=== PATIENT | male | born 1985 | race Caucasian/White ===

== ENCOUNTER 2016-03-23 19:26 | Outpatient (CLI) | payer MEDICAID | END 2016-03-23 19:27 | disposition home or self-care (01) | DX: G47.33 Obstructive sleep apnea (adult) (pediatric) (principal); Z68.30 Body mass index [BMI] 30.0-30.9, adult ==

== ENCOUNTER 2016-03-24 09:23 | Outpatient (CLI) | payer MEDICAID | END 2016-03-24 09:24 | disposition home or self-care (01) | DX: G47.33 Obstructive sleep apnea (adult) (pediatric) (principal) ==

== ENCOUNTER 2016-09-28 17:15 | Emergency (ER) | payer OTHER, MEDICAID ==
[2016-09-28 17:25] VITALS: BP 151/87
--- NOTE | 2016-09-28 17:50 | XRAY Preliminary Report ---
Exam: XR Hand 3 View LT IMPRESSION: Fourth digit tuft fracture. [facility] SITE ID: [id number]
--- NOTE | 2016-09-28 17:53 | XRAY Report ---
EXAM: LEFT HAND RADIOGRAPHY EXAM DATE: 09/28/2016 05:36 PM. CLINICAL HISTORY: Multiple hammer blows to left hand. COMPARISON: None. TECHNIQUE: 3 views. FINDINGS: Bones: Slightly displaced fourth digit tuft fracture. No other fractures or bone lesion seen. Joints: Normal. No subluxations. Soft Tissues: Normal. No soft tissue swelling. IMPRESSION: Fourth digit tuft fracture. [facility] Referring Provider Line: [phone] SITE ID: [id number]
[2016-09-28] MEDS ORDERED: ACETAMINOPHEN 325 MG TABLET PO STA (18:24)
[2016-09-28] MEDS ORDERED: IBUPROFEN 400 MG TABLET PO STA (18:24)
--- NOTE | 2016-09-28 18:28 | ED Physician Documentation ---
History of Present Illness - Stated complaint Stated Complaint: LT HAND SWELL - Chief complaint Chief Complaint: Ext Problem - Additonal information Additional information: hx from pt 30 male was holding a metal stake with his left hand and swinging a hammer to pound in the stake with his right and the hammer slipped off the stake and his on edge left hand got crushed between hammer and a board pain and swelling to dorsum of 2nd and 3rd MC Review of Systems Musculoskeletal: reports: Extremity pain PD PAST MEDICAL HISTORY - Past Medical History Cardiovascular: None Respiratory: Other Neuro: None Endocrine/Autoimmune: None GI: GERD : None HEENT: None Psych: None Musculoskeletal: None Derm: None - Past Surgical History Past Surgical History: Yes General: Cholecystectomy, EGD Ortho: Other HEENT: Tonsil/Adenoidectomy - Present Medications Home Medications: Ambulatory Orders Medication Instructions Recorded Confirmed No Known Home Medications [No 09/28/16 09/28/16 Known Home Medications] - Allergies Allergies/Adverse Reactions: Allergies Allergy/AdvReac Type Severity Reaction Status Date / Time No Known Drug Allergies Allergy Verified 09/28/16 18:14 - Social History Does the pt smoke?: Yes Smoking Status: Current every day smoker Does the pt drink ETOH?: Yes Does the pt have substance abuse?: No - Immunizations Immunizations are current?: Yes - POLST Patient has POLST: No PD ED PE NORMAL - Vitals Vital signs reviewed: Yes - Extremities Extremities: Other (swelling early brusing and TTP to dorsal aspect over 2nd and 3rd MC, nl cascade, MSV intact, no pain to distal 4th finger) Results - Vitals Vitals: Vital Signs - 24 hr 09/28/16 17:23 Temperature 37.0 C Heart Rate 78 Respiratory 18 Rate Blood Pressure 151/87 H O2 Saturation 98 Oxygen O2 Source Room air - Rads (name of study) hand Radiology: See rad report (distal 4th tuft fx (per pt form another injury months ago and not tender now)) Departure - Departure Disposition: 01 Home, Self Care Clinical Impression: Hand contusion Qualifiers: Encounter type: initial encounter Laterality: left Qualified Code(s): S60.222A - Contusion of left hand, initial encounter Condition: Good Instructions: ED Contusion Hand Follow-Up: Jazmín Osborn PA-C [Primary Care Provider] - Comments: The xrays show the old 4th finger fracture which has not fully healed - but no new fractures Wear the splint for support and to ease the pain. Ice elevation motrin and tylenol will help too. If not better in 2 weeks, please see your MD for a recheck and consideration of further imaging And please follow up with your PMD to get your blood pressure rechecked - it was high today {"Attachments":[{"__type":"ItemIdAttachment:#Exchange","ItemId":{"ChangeKey": [id number]","Id": [id number]/ qTMogAAAA=="},"Name":"Canceled Event: Practice, September 28, 6:00 PM","IsInline": false,"Size":[id number]}]} Forms: Activity restrictions
[2016-09-28] MEDS ORDERED: ACETAMINOPHEN 325 MG TABLET PO ONE (18:30)
[2016-09-28] MEDS ORDERED: IBUPROFEN 400 MG TABLET PO ONE (18:30)
== END 2016-09-28 18:43 | disposition home or self-care (01) ==
LOC: ED 17:15
DX: S60.222A Contusion of left hand, initial encounter (principal); W22.8XXA Striking against or struck by other objects, initial encounter; W23.0XXA Caught, crushed, jammed, or pinched between moving objects, initial encounter; Y93.89 Activity, other specified; F17.200 Nicotine dependence, unspecified, uncomplicated
CPT/HCPCS: 73130; 99282; 99283; A9270

== ENCOUNTER 2017-06-05 10:34 | Emergency (ER) | payer MEDICAID, OTHER ==
--- NOTE | 2017-06-05 11:03 | ED Physician Documentation ---
PD HPI BACK PAIN - Stated complaint Stated Complaint: BACK PX - Chief complaint Chief Complaint: Back Pain - History obtained from History obtained from: Patient, Friend - History of Present Illness Timing - onset: How many days ago (2) Timing - duration: Days (2) Timing - details: Gradual onset Pain level max: 9 Pain level now: 9 Location: Upper, Right, Left Quality: Pain, Spasm, Aching, Dull, Similar to prior episodes. No: Tearing Associated symptoms: No: Fever, Weakness, Numbness, Incontinent of urine, Unable to urinate, Hematuria, Incontinent of stool Improves with: Rest Worsened by: Movement, Twisting, Palpation Contributing factors: No: Lifting, Twisting, Trauma, Anticoagulated, Cancer, IVDA, Out of meds Recently seen: Not recently seen - Additional information Additional information: states took a neighbors vicodin without relief. Review of Systems Ten Systems: 10 systems reviewed and negative Constitutional: denies: Fever, Chills Ears: denies: Ear pain Nose: denies: Rhinorrhea / runny nose, Congestion Throat: denies: Sore throat Cardiac: denies: Chest pain / pressure, Palpitations Respiratory: reports: Cough (occassional, dry) GI: denies: Abdominal Pain, Nausea, Vomiting, Diarrhea : denies: Dysuria Skin: denies: Rash Musculoskeletal: denies: Neck pain Neurologic: denies: Focal weakness, Numbness, Headache PD PAST MEDICAL HISTORY - Past Medical History Cardiovascular: None Respiratory: Other Neuro: None Endocrine/Autoimmune: None GI: GERD : None HEENT: None Psych: None Musculoskeletal: None Derm: None - Past Surgical History Past Surgical History: Yes General: Cholecystectomy, EGD Ortho: Other HEENT: Tonsil/Adenoidectomy - Present Medications Home Medications: Ambulatory Orders Medication Instructions Recorded Confirmed Cyclobenzaprine [Flexeril] 10 mg PO TID PRN #20 tablet 06/05/17 Meloxicam [Mobic] 15 mg PO DAILY PRN #20 tablet 06/05/17 Oxycodone HCl/Acetaminophen 1 - 2 each PO Q6H PRN #14 tablet 06/05/17 [Percocet 5-325 mg Tablet] - Allergies Allergies/Adverse Reactions: Allergies Allergy/AdvReac Type Severity Reaction Status Date / Time No Known Drug Allergies Allergy Verified 06/05/17 10:53 - Social History Does the pt smoke?: Yes Smoking Status: Current every day smoker Does the pt drink ETOH?: Yes Does the pt have substance abuse?: No - Immunizations Immunizations are current?: Yes - POLST Patient has POLST: No PD ED PE NORMAL - Vitals Vital signs reviewed: Yes - General General: Alert and oriented X 3, No acute distress - HEENT HEENT: Moist mucous membranes - Neck Neck: Supple, no meningeal sign, No bony TTP - Cardiac Cardiac: RRR - Respiratory Respiratory: No respiratory distress, Clear bilaterally - Abdomen Abdomen: Soft, Non tender, Non distended - Back Back: No CVA TTP, No spinal TTP, Other (paraspinal spasm, B upper thoracic area T4-10 approx. No midline tenderness to palpation or percussion.) - Derm Derm: Warm and dry - Extremities Extremities: Normal ROM s pain, No edema, No calf tenderness / cord - Neuro Neuro: Alert and oriented X 3, No motor deficit, No sensory deficit - Psych Psych: Normal mood, Normal affect Results - Vitals Vitals: Vital Signs - 24 hr 06/05/17 06/05/17 06/05/17 10:43 12:49 13:07 Temperature 37.0 C Heart Rate 82 61 58 L Respiratory 17 20 18 Rate Blood Pressure 156/84 H 129/79 100/88 H O2 Saturation 98 99 96 06/05/17 13:37 Temperature 36.9 C Heart Rate 62 Respiratory 20 Rate Blood Pressure 128/91 H O2 Saturation 99 Oxygen O2 Source Room air - Labs Labs: Laboratory Tests 06/05/17 06/05/17 12:44 12:44 WBC 5.8 RBC 5.03 Hgb 15.5 Hct 44.5 MCV 88.4 MCH 30.8 MCHC 34.8 RDW 13.8 Plt Count 181 MPV 7.8 Neut # 3.3 Lymph # 1.4 L Mower # 0.8 Eos # 0.2 Baso # 0.1 Absolute Nucleated RBC 0.01 Nucleated RBC % 0.1 Sodium 140 Potassium 4.0 Chloride 107 Carbon Dioxide 26 Anion Gap 7.0 BUN 12 Creatinine 1.0 Estimated GFR (MDRD) 87 L Glucose 95 Calcium 8.8 Total Bilirubin 0.6 AST 24 ALT 18 Alkaline Phosphatase 38 L Total Protein 7.3 Albumin 4.6 Globulin 2.7 Albumin/Globulin Ratio 1.7 Lipase 13 L PD MEDICAL DECISION MAKING - ED course Complexity details: reviewed results, re-evaluated patient, considered differential (no cauda equina, no spinal epidural abscess, no fracture, no aortic dissection or evidence of aneursym rupture), d/w patient ED course: Patient is a 31-year-old male who presents to the emergency department with thoracic back pain. Works for a [employer]. Appears to be worse with movement and palpation. Appears musculoskeletal on exam. No evidence of aortic aneurysm or dissection. No chest pain. No acute laboratory findings. Pulses are equal bilaterally. Pain well controlled in the emergency department. Will trial on pain medication for home and see how he progresses over the next 1-2 days. He will return if he worsens. Patient counseled regarding signs and symptoms for which I believe and urgent re-evaluation would be necessary. Patient with good understanding of and agreement to plan and is comfortable going home at this time This document was made in part using voice recognition software. While efforts are made to proofread this document, sound alike and grammatical errors may occur. Departure - Departure Disposition: 01 Home, Self Care Clinical Impression: Back spasm Condition: Good Instructions: ED Spasm Back No Trauma Follow-Up: your,doctor in 1week [Other] Prescriptions: Cyclobenzaprine [Flexeril] 10 mg PO TID PRN #20 tablet PRN Reason: Spasms Meloxicam [Mobic] 15 mg PO DAILY PRN #20 tablet PRN Reason: pain Oxycodone HCl/Acetaminophen [Percocet 5-325 mg Tablet] 1 - 2 each PO Q6H PRN # 14 tablet PRN Reason: pain Comments: This should improve over the next 24-48 hours. Return if you worsen. Especially return if you develop fevers, numbness, tingling or uncontrolled pain. Do not drink alcohol or drive while on narcotic pain medicine. Note that many narcotic pain relievers also contain tylenol/acetaminophen. Please ensure that your total dose of acetaminophen from all sources does not exceed 3 grams (3000mg) per day. You may constipated on this medication, take a stool softener such as "Colace" twice a day while you are on it. Also recommend a bjqf-mto-wiprumb laxative such as senna or MiraLAX any day that you do not have a bowel movement. If you received narcotic pain medication in the emergency department, do not drive or operate machinery for the next 24 hours. Forms: Activity restrictions Discharge Date/Time: 06/05/17 13:38
[2017-06-05] MEDS ORDERED: KETOROLAC 60 MG/2 ML VIAL IM STA (11:04)
[2017-06-05] MEDS ORDERED: CYCLOBENZAPRINE 10 MG TABLET PO STA (11:05)
[2017-06-05] MEDS ORDERED: ONDANSETRON ODT 4 MG TABLET TL STA (11:35)
[2017-06-05] MEDS ORDERED: MORPHINE 2 MG/ML SYRINGE IVP STA (11:55)
[2017-06-05 13:02] LABS: ALBUMIN 4.6 g/dL (3.2-5.5); ALBUMIN/GLOBULIN RATIO 1.7 (1.0-2.2); BILIRUBIN,TOTAL 0.6 mg/dL (0.2-1.0); CALCIUM 8.8 mg/dL (8.5-10.3); TOTAL PROTEIN 7.3 g/dL (6.7-8.2)
[2017-06-05 13:07] LABS: BASOPHILS # (AUTO) 0.1 10^3/uL (0.0-0.1); BASOPHILS % (AUTO) 0.9 %; EOSINOPHILS # (AUTO) 0.2 10^3/uL (0.0-0.7); EOSINOPHILS % (AUTO) 3.3 %; HGB - HEMOGLOBIN 15.5 g/dL (14.0-18.0); LYMPHOCYTES # (AUTO) 1.4 10^3/uL (1.5-3.5); LYMPHOCYTES % (AUTO) 25.2 %; MEAN CORPUSCULAR HEMOGLOBIN 30.8 pg (27.0-31.0); MEAN CORPUSCULAR HGB CONC 34.8 g/dL (32.0-36.0); MEAN CORPUSCULAR VOLUME 88.4 fL (80.0-94.0); MEAN PLATELET VOLUME 7.8 fL (7.4-11.4); MONOCYTES # (AUTO) 0.8 10^3/uL (0.0-1.0); MONOCYTES % (AUTO) 13.6 %; NEUTROPHILS # (AUTO) 3.3 10^3/uL (1.5-6.6); PLT - PLATELET COUNT 181 10^3/uL (130-450); RED BLOOD COUNT 5.03 10^6/uL (4.70-6.10); RED CELL DISTRIBUTION WIDTH 13.8 % (12.0-15.0); WHITE BLOOD COUNT 5.8 x10^3/uL (4.8-10.8)
[2017-06-05 13:38] VITALS: BP 128/91
== END 2017-06-05 13:38 | disposition home or self-care (01) ==
LOC: ED 10:34
DX: K21.9 Gastro-esophageal reflux disease without esophagitis (principal); F17.200 Nicotine dependence, unspecified, uncomplicated; M62.830 Muscle spasm of back
CPT/HCPCS: 36415; 80053; 83690; 85025; 96372; 96374; 99283; 99284; A9270; J2270; Q0162

== ENCOUNTER 2017-06-16 08:30 | Outpatient (CLI) | payer OTHER | END 2017-06-16 08:45 | disposition home or self-care (01) | LOC: RT.N 08:30 | PROVIDERS: ATTEND Nurse Practitioner Gerontology | DX: R07.89 Other chest pain (principal) | CPT/HCPCS: 93005 ==

== ENCOUNTER 2017-06-16 09:51 | Outpatient (CLI) | payer OTHER ==
[2017-06-16 12:01] LABS: BASOPHILS # (AUTO) 0.1 10^3/uL (0.0-0.1); BASOPHILS % (AUTO) 0.9 %; EOSINOPHILS # (AUTO) 0.2 10^3/uL (0.0-0.7); EOSINOPHILS % (AUTO) 2.8 %; HGB - HEMOGLOBIN 15.4 g/dL (14.0-18.0); LYMPHOCYTES # (AUTO) 1.7 10^3/uL (1.5-3.5); LYMPHOCYTES % (AUTO) 20.9 %; MEAN CORPUSCULAR HEMOGLOBIN 30.6 pg (27.0-31.0); MEAN CORPUSCULAR HGB CONC 34.6 g/dL (32.0-36.0); MEAN CORPUSCULAR VOLUME 88.5 fL (80.0-94.0); MEAN PLATELET VOLUME 8.1 fL (7.4-11.4); MONOCYTES # (AUTO) 0.8 10^3/uL (0.0-1.0); MONOCYTES % (AUTO) 9.1 %; NEUTROPHILS # (AUTO) 5.5 10^3/uL (1.5-6.6); NEUTROPHILS % (AUTO) 66.3 %; PLT - PLATELET COUNT 259 10^3/uL (130-450); RED BLOOD COUNT 5.04 10^6/uL (4.70-6.10); RED CELL DISTRIBUTION WIDTH 13.4 % (12.0-15.0); WHITE BLOOD COUNT 8.3 x10^3/uL (4.8-10.8)
[2017-06-16 12:26] LABS: ALBUMIN 4.6 g/dL (3.2-5.5); ALKALINE PHOSPHATASE 38 IU/L (42-121); ALT ALANINE AMINOTRANSFERASE 21 IU/L (10-60); AST ASPARTATE AMINOTRANSFERASE 20 IU/L (10-42); BILIRUBIN,TOTAL 0.8 mg/dL (0.2-1.0); BUN - BLOOD UREA NITROGEN 18 mg/dL (6-20); CALCIUM 9.2 mg/dL (8.5-10.3); CARBON DIOXIDE - CO2 27 mmol/L (21-32); CHLORIDE 101 mmol/L (101-111); CHOL/HDL RATIO 3.2 (<5.0); CHOLESTEROL 207 mg/dL; CREATININE 1.2 mg/dL (0.6-1.2); GFR - MDRD 71 (>89); GLUCOSE 94 mg/dL (70-100); HDL CHOLESTEROL 64 mg/dL; LDL CHOLESTEROL,CALCULATED 133 mg/dL; LDL/HDL RATIO 2.1 (<3.6); SODIUM 135 mmol/L (135-145); TOTAL PROTEIN 6.9 g/dL (6.7-8.2); VLDL CHOLESTEROL 10 mg/dL
[2017-06-16 12:29] LABS: PSA FREE 0.12 ng/mL (0.16-2.81)
[2017-06-16 12:30] LABS: PSA TOTAL 0.66 ng/mL (0.000-2.000)
== END 2017-06-16 09:52 | disposition home or self-care (01) ==
LOC: LAB.N 09:51
PROVIDERS: ATTEND Nurse Practitioner Gerontology
DX: Z13.9 Encounter for screening, unspecified (principal)
CPT/HCPCS: 36415; 80053; 80061; 83721; 84154; 84443; 85025

== ENCOUNTER 2017-08-18 04:21 | Emergency (ER) | payer OTHER ==
[2017-08-18] MEDS ORDERED: ONDANSETRON ODT 4 MG TABLET TL STA (04:31)
[2017-08-18] MEDS ORDERED: ALBUTEROL NEB 2.5 MG/3 ML INH STA (04:31)
--- NOTE | 2017-08-18 05:00 | XRAY Report ---
EXAM: CHEST RADIOGRAPHY EXAM DATE: 08/18/2017 04:46 AM. CLINICAL HISTORY: Fever, cough. COMPARISON: None. TECHNIQUE: 2 views. FINDINGS: Lungs/Pleura: No alveolar consolidation or pleural effusion seen. No pneumothorax. Mediastinum: Heart and mediastinal contours are unremarkable. Other: None. IMPRESSION: 1. No acute abnormality seen in the chest. [facility] Referring Provider Line: [phone] SITE ID: [id number]
[2017-08-18] MEDS ORDERED: BENZONATATE 100 MG CAPSULE PO STA (05:20)
[2017-08-18] MEDS ORDERED: predniSONE 20 MG TABLET PO STA (05:20)
--- NOTE | 2017-08-18 05:23 | ED Physician Documentation ---
PD HPI URI - Stated complaint Stated Complaint: NAUSEA/SHORTNESS OF AIR - Chief complaint Chief Complaint: Resp - History obtained from History obtained from: Patient - History of Present Illness Timing - onset: How many days ago (4) Timing details: Gradual onset, Intermittant Associated symptoms: Chills, Dry cough Similar symptoms before: No diagnosis Recently seen: Not recently seen - Additional information Additional information: Patient is a 31 year old male with no significant past medical history who is presenting to the emergency department for cough and nausea. Patient states that the symptoms have been going on for the last 4 days. patient denies any fevers and reports that he tried his girlfriend's inhaler with no relief. Patient states that the nausea and vomiting started today. Review of Systems Ten Systems: 10 systems reviewed and negative Constitutional: reports: Myalgias. denies: Fever Respiratory: reports: Cough GI: reports: Nausea, Vomiting PD PAST MEDICAL HISTORY - Past Medical History Past Medical History: Yes Cardiovascular: None Respiratory: Asthma Endocrine/Autoimmune: None GI: GERD : None HEENT: None Psych: None Musculoskeletal: None Derm: None - Past Surgical History Past Surgical History: Yes General: Cholecystectomy, EGD Ortho: Other HEENT: Tonsil/Adenoidectomy - Present Medications Home Medications: Ambulatory Orders Medication Instructions Recorded Confirmed Cyclobenzaprine [Flexeril] 10 mg PO TID PRN #20 tablet 06/05/17 Meloxicam [Mobic] 15 mg PO DAILY PRN #20 tablet 06/05/17 Oxycodone HCl/Acetaminophen 1 - 2 each PO Q6H PRN #14 tablet 06/05/17 [Percocet 5-325 mg Tablet] Albuterol Sulfate [Proventil Hfa 1 - 2 puffs INH Q4H PRN #1 inhaler 08/18/17 Inhaler] Benzonatate [Tessalon Perle] 100 mg PO TID #20 capsule 08/18/17 Codeine Phosphate/Guaifenesin 5 ml PO DAILY #20 liquid 08/18/17 [Guaifen-Codeine 100-10 mg/5 ml] Ondansetron Odt [Zofran] 4 mg TL Q6H PRN #14 tablet 08/18/17 predniSONE [Prednisone] 40 mg PO DAILY 5 Days tablet 08/18/17 - Allergies Allergies/Adverse Reactions: Allergies Allergy/AdvReac Type Severity Reaction Status Date / Time No Known Drug Allergies Allergy Verified 08/18/17 04:29 - Social History Does the pt smoke?: Yes Smoking Status: Current every day smoker Does the pt drink ETOH?: Yes Does the pt have substance abuse?: No - Immunizations Immunizations are current?: Yes - POLST Patient has POLST: No PD ED PE NORMAL - Vitals Vital signs reviewed: Yes - General General: Alert and oriented X 3, No acute distress - HEENT HEENT: Atraumatic - Neck Neck: Supple, no meningeal sign - Cardiac Cardiac: RRR - Respiratory Respiratory: No respiratory distress, Clear bilaterally - Abdomen Abdomen: Soft, Non distended - Derm Derm: Normal color, Warm and dry - Extremities Extremities: No deformity - Neuro Neuro: Alert and oriented X 3 Eye Opening: Spontaneous Motor: Obeys Commands - Psych Psych: Normal mood Results - Vitals Vitals: Vital Signs - 24 hr 08/18/17 08/18/17 04:25 04:49 Temperature 37.1 C Heart Rate 70 72 Respiratory 18 12 Rate Blood Pressure 154/98 H O2 Saturation 99 Oxygen O2 Source Room air - Rads (name of study) chest x-ray Radiology: Final report received (normal) PD MEDICAL DECISION MAKING - ED course Complexity details: reviewed old records, reviewed results, re-evaluated patient , considered differential, d/w patient ED course: Patient was seen and examined at bedside. Patient was treated with zofran and sent for imaging. When patient returned the results were reviewed. there was no acute infiltrate. patient was treated with steroids, and tessalon perle. Patient was able to tolerate PO and was stable for discharge with outpatient follow up. Departure - Departure Disposition: 01 Home, Self Care Clinical Impression: Reactive airway disease Condition: Stable Instructions: ED Reactive Airway Disease Follow-Up: primary,care provider [Other] Prescriptions: Albuterol Sulfate [Proventil Hfa Inhaler] 1 - 2 puffs INH Q4H PRN #1 inhaler PRN Reason: Shortness Of Air/Wheezing Benzonatate [Tessalon Perle] 100 mg PO TID #20 capsule Codeine Phosphate/Guaifenesin [Guaifen-Codeine 100-10 mg/5 ml] 5 ml PO DAILY # 20 liquid Ondansetron Odt [Zofran] 4 mg TL Q6H PRN #14 tablet PRN Reason: Nausea / Vomiting predniSONE [Prednisone] 40 mg PO DAILY 5 Days tablet Comments: Your diagnostics today were within normal limits. Your symptoms are likely viral in nature. There is no cure, only to treat the symptoms. You are being prescribed multiple medications to help with the breathing, coughing and nausea. If you take the cough medicine with codeine you should not take it with any other sedatives including alcohol and you cannot drive or operate heavy machinery while taking it. You should follow up with your doctor if your symptoms persist. You may return to the emergency department at any time for new, worsening or uncontrollable symptoms. Forms: Activity restrictions
[2017-08-18 05:27] VITALS: BP 147/81
== END 2017-08-18 05:31 | disposition home or self-care (01) ==
LOC: ED 04:21
DX: J45.909 Unspecified asthma, uncomplicated (principal); F17.200 Nicotine dependence, unspecified, uncomplicated
CPT/HCPCS: 71046; 99283; A9270; J7512; Q0162

== ENCOUNTER 2018-02-10 18:30 | Emergency (ER) | payer OTHER ==
[2018-02-10] MEDS ORDERED: BUFFERED LIDOCAINE 10 ML SYRINGE SUBQ STA (18:48)
--- NOTE | 2018-02-10 18:50 | ED Physician Documentation ---
PD HPI UPPER EXT INJURY - Stated complaint Stated Complaint: LT HAND FINGER LAC - Chief complaint Chief Complaint: Ext Problem - History obtained from History obtained from: Patient - History of Present Illness Location: Left (Right-handed gentleman accidentally hit his left second and third fingers with a hammer at home just prior to arrival and has severe pain. Most of the pain is in the second finger.) Review of Systems Constitutional: reports: Reviewed and negative Throat: reports: Reviewed and negative Cardiac: reports: Reviewed and negative PD PAST MEDICAL HISTORY - Past Medical History Cardiovascular: None Respiratory: Asthma Endocrine/Autoimmune: None GI: GERD : None HEENT: None Psych: None Musculoskeletal: None Derm: None - Past Surgical History Past Surgical History: Yes General: Cholecystectomy, EGD Ortho: Other HEENT: Tonsil/Adenoidectomy - Present Medications Home Medications: Ambulatory Orders Medication Instructions Recorded Confirmed Oxycodone HCl/Acetaminophen 1 - 2 each PO Q6H PRN #7 tablet 02/10/18 [Percocet 5-325 mg Tablet] - Allergies Allergies/Adverse Reactions: Allergies Allergy/AdvReac Type Severity Reaction Status Date / Time No Known Drug Allergies Allergy Verified 02/10/18 18:34 - Social History Does the pt smoke?: Yes Smoking Status: Current every day smoker Does the pt drink ETOH?: Yes Does the pt have substance abuse?: No - Immunizations Immunizations are current?: Yes - POLST Patient has POLST: No PD ED PE NORMAL - Vitals Vital signs reviewed: Yes - General General: Alert and oriented X 3, Other (pacing, uncomfortable, swearing) - Extremities Extremities: Other (Quite tender at the tip of the left second finger with swelling but no deformity. Good range of motion.) - Neuro Neuro: Alert and oriented X 3, Normal speech - Psych Psych: Normal mood, Normal affect Results - Vitals Vitals: Vital Signs - 24 hr 02/10/18 18:31 Temperature 36.9 C Heart Rate 82 Respiratory 22 Rate Blood Pressure 198/110 H O2 Saturation 97 Oxygen O2 Source Room air - Rads (name of study) L hand 3v Radiology: EMP read contemporaneously (normal) Procedures - Splint (location) L 2nd finger Splint applied by: Tech Type of splint: Metal foam finger splint Other: Patient tolerated well, No complications, Neurovascular intact - Regional nerve block Nerve block site: Digital - note digit(s) (2nd) Right / left: Left Nerve block anesthesia: Lidocaine 1%, Marcaine 0.5% Nerve block aftercare: Moderate Anesthesia PD MEDICAL DECISION MAKING - ED course ED course: 32-year-old gentleman with a crush injury of the left second and less so third finger with severe pain in the second finger despite no fracture on x-ray. He was blocked during initial evaluation with lidocaine which was incomplete and this was followed with Marcaine. Departure - Departure Disposition: 01 Home, Self Care Clinical Impression: Crushing injury of finger of left hand Condition: Good Record reviewed to determine appropriate education?: Yes Instructions: ED Crush Injury Finger No Fx Prescriptions: Oxycodone HCl/Acetaminophen [Percocet 5-325 mg Tablet] 1 - 2 each PO Q6H PRN #7 tablet PRN Reason: pain Comments: Recheck with your doctor in 1 week if not better. Return if worse or if new symptoms develop. Your blood pressure was elevated today on check into the emergency department. This does not mean that you have hypertension, it is a common phenomenon to come to the emergency department and have elevated blood pressure. I recommend that you see your primary care physician within the week to have it rechecked when you are feeling better. Do not drink or drive while taking narcotic pain medication. Note that many narcotic pain relievers also contain Tylenol/acetaminophen. Please ensure that your total dose of acetaminophen from all sources does not exceed 3 g (3000 mg) per day. You may get constipated while on this medication. Take a stool softener such as Colace twice a day while you are on it. Also add an cpvy-sxb-vaawvxs laxative such as senna or MiraLAX on any day that you do not have a bowel movement. If you received a narcotic pain medication or sedative while in the emergency department, do not drive for the next 24 hours.
[2018-02-10] MEDS ORDERED: BUPIVACAINE 0.5% PF 10 ML VIAL SUBQ STA (19:05)
--- NOTE | 2018-02-10 19:37 | XRAY Report ---
Reason: hand inj Procedure Date: 02/10/2018 Accession Number: [id number] / [id number] Procedure: XR - Hand 3 View LT CPT Code: FULL RESULT: EXAM: LEFT HAND RADIOGRAPHY EXAM DATE: 02/10/2018 07:11 PM. CLINICAL HISTORY: Left index finger pain and swelling after smashing injury with hammer. COMPARISON: HAND 3 VIEW LT 09/28/2016 5:28 PM. TECHNIQUE: 3 views. FINDINGS: Bones: Interval healing of the fourth distal phalangeal tuft fracture. Trabecular and cortical patterns are intact. Joints: Normal. No subluxations. Soft Tissues: Mild edema distal third of the index finger. No radiopaque foreign body. IMPRESSION: No acute bony abnormality. [facility]
[2018-02-10] MEDS ORDERED: oxyCODONE/ACET 5/325 Prepack 4 PO STA (19:43)
[2018-02-10 19:44] VITALS: BP 155/90
== END 2018-02-10 19:55 | disposition home or self-care (01) ==
LOC: ED 18:30
DX: S67.191A Crushing injury of left index finger, initial encounter (principal); S67.193A Crushing injury of left middle finger, initial encounter; W27.8XXA Contact with other nonpowered hand tool, initial encounter; F17.200 Nicotine dependence, unspecified, uncomplicated; Y92.009 Unspecified place in unspecified non-institutional (private) residence as the place of occurrence of the external cause; Y93.9 Activity, unspecified
CPT/HCPCS: 29130; 64450; 99283

== ENCOUNTER 2018-05-10 06:11 | Emergency (ER) | payer OTHER ==
[2018-05-10] MEDS ORDERED: ONDANSETRON 4 MG/2 ML VIAL IVP STA (06:28)
[2018-05-10] MEDS ORDERED: SODIUM CHLORIDE 0.9% 1,000 ML IV STA (06:28)
[2018-05-10 06:53] LABS: BASOPHILS # (AUTO) 0.1 10^3/uL (0.0-0.1); BASOPHILS % (AUTO) 0.8 %; EOSINOPHILS # (AUTO) 0.1 10^3/uL (0.0-0.7); HGB - HEMOGLOBIN 14.9 g/dL (14.0-18.0); LYMPHOCYTES # (AUTO) 0.3 10^3/uL (1.5-3.5); LYMPHOCYTES % (AUTO) 4.3 %; MEAN CORPUSCULAR HGB CONC 34.9 g/dL (32.0-36.0); MEAN CORPUSCULAR VOLUME 88.9 fL (80.0-94.0); MEAN PLATELET VOLUME 7.6 fL (7.4-11.4); MONOCYTES # (AUTO) 0.8 10^3/uL (0.0-1.0); MONOCYTES % (AUTO) 11.6 %; NEUTROPHILS # (AUTO) 5.4 10^3/uL (1.5-6.6); NEUTROPHILS % (AUTO) 82.3 %; PLT - PLATELET COUNT 182 10^3/uL (130-450); RED BLOOD COUNT 4.82 10^6/uL (4.70-6.10); RED CELL DISTRIBUTION WIDTH 13.8 % (12.0-15.0); WHITE BLOOD COUNT 6.5 x10^3/uL (4.8-10.8)
[2018-05-10 07:04] LABS: ALBUMIN 4.6 g/dL (3.2-5.5); ALBUMIN/GLOBULIN RATIO 1.7 (1.0-2.2); CALCIUM 9.3 mg/dL (8.5-10.3); CREATININE 1.1 mg/dL (0.6-1.2); TOTAL PROTEIN 7.3 g/dL (6.7-8.2)
[2018-05-10] MEDS ORDERED: SODIUM CHLORIDE 0.9% 1,000 ML IV ONE (07:21)
[2018-05-10] MEDS ORDERED: DEXAMETHASONE 10 MG/ML VIAL IVP STA (07:21)
--- NOTE | 2018-05-10 07:24 | ED Physician Documentation ---
History of Present Illness - Stated complaint Stated Complaint: BACK/ABD PX FEVER - Chief complaint Chief Complaint: Abd Pain - History obtained from History obtained from: Patient, Family - History of Present Illness Timing: Enter time (0500), Yesterday - Additonal information Additional information: 32-year-old male awoke yesterday morning with a fever and cough with back spasm and developed nausea and vomiting. He has come to the emergency department this morning with severe back pain intermittent migrating abdominal pain nausea vomiting. He was able to get through most of work yesterday but was exhausted and fell fast asleep. Review of Systems Constitutional: reports: Fever, Chills, Myalgias, Fatigue Eyes: denies: Decreased vision Ears: denies: Ear pain Nose: reports: Rhinorrhea / runny nose, Congestion Throat: denies: Sore throat Cardiac: denies: Chest pain / pressure, Palpitations Respiratory: reports: Cough. denies: Dyspnea, Wheezing GI: reports: Abdominal Pain, Nausea, Vomiting. denies: Constipation, Diarrhea : denies: Dysuria, Frequency Skin: denies: Rash Musculoskeletal: reports: Back pain. denies: Neck pain, Extremity pain PD PAST MEDICAL HISTORY - Past Medical History Past Medical History: Yes Cardiovascular: None Respiratory: Asthma Endocrine/Autoimmune: None GI: GERD : None HEENT: None Psych: None Musculoskeletal: None Derm: None - Past Surgical History Past Surgical History: Yes General: Cholecystectomy, EGD Ortho: Other HEENT: Tonsil/Adenoidectomy - Present Medications Home Medications: Ambulatory Orders Medication Instructions Recorded Confirmed Oxycodone HCl/Acetaminophen 1 - 2 each PO Q6H PRN #7 tablet 02/10/18 [Percocet 5-325 mg Tablet] Cyclobenzaprine [Flexeril] 10 mg PO TID PRN #20 tablet 05/10/18 Hydrocodone/Acetaminophen 1 - 2 each PO Q6H PRN #14 tablet 05/10/18 [Hydrocodon-Acetaminophen 5-325] - Allergies Allergies/Adverse Reactions: Allergies Allergy/AdvReac Type Severity Reaction Status Date / Time No Known Drug Allergies Allergy Verified 05/10/18 06:28 - Social History Does the pt smoke?: Yes Smoking Status: Current every day smoker Does the pt drink ETOH?: Yes ETOH Use: Beer Does the pt have substance abuse?: No - Immunizations Immunizations are current?: Yes - POLST Patient has POLST: No PD ED PE NORMAL - Vitals Vital signs reviewed: Yes (hypertensive ) - General General: Alert and oriented X 3, No acute distress, Well developed/nourished - HEENT HEENT: Atraumatic, PERRL, EOMI, Ears normal, Pharynx benign, Other (dry mucous membranes ) - Neck Neck: Supple, no meningeal sign, No bony TTP - Cardiac Cardiac: RRR, No murmur - Respiratory Respiratory: No respiratory distress, Other (diminished breath sounds ) - Abdomen Abdomen: Soft - Back Back: No CVA TTP, No spinal TTP, Other (There is tenderness to the paraspinous muscles of the lumbar spine bilaterally and symetrical. 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, No motor deficit, No sensory deficit, Normal speech Eye Opening: Spontaneous Motor: Obeys Commands Verbal: Oriented GCS Score: 15 - Psych Psych: Normal mood, Normal affect Results - Vitals Vitals: Vital Signs - 24 hr 05/10/18 05/10/18 06:15 06:49 Temperature 37.1 C 37.2 C Heart Rate 93 Respiratory 24 Rate Blood Pressure 131/96 H O2 Saturation 100 Oxygen O2 Source Room air - Labs Labs: Laboratory Tests 05/10/18 05/10/18 05/10/18 06:35 06:35 07:45 WBC 6.5 RBC 4.82 Hgb 14.9 Hct 42.8 MCV 88.9 MCH 31.0 MCHC 34.9 RDW 13.8 Plt Count 182 MPV 7.6 Neut # (Auto) 5.4 Lymph # (Auto) 0.3 L [place] # (Auto) 0.8 Eos # (Auto) 0.1 Baso # (Auto) 0.1 Absolute Nucleated RBC 0.00 Nucleated RBC % 0.0 Sodium 136 Potassium 3.2 L Chloride 103 Carbon Dioxide 22 Anion Gap 11.0 BUN 12 Creatinine 1.1 Estimated GFR (MDRD) 78 L Glucose 111 H Calcium 9.3 Total Bilirubin 1.0 AST 23 ALT 19 Alkaline Phosphatase 34 L Total Protein 7.3 Albumin 4.6 Globulin 2.7 Albumin/Globulin Ratio 1.7 Lipase 20 L Urine Color YELLOW Urine Clarity CLEAR Urine pH 8.5 H Ur Specific [place] 1.020 Urine Protein NEGATIVE Urine Glucose (UA) NEGATIVE Urine Ketones 40 H Urine Occult Blood NEGATIVE Urine Nitrite NEGATIVE Urine Bilirubin NEGATIVE Urine Urobilinogen 0.2 (NORMAL) Ur Leukocyte Esterase NEGATIVE Ur Microscopic Review NOT INDICATED Urine Culture Comments NOT INDICATED Procedures - Bedside sono Bedside sono by EMP: With use of bedside ultrasound the right kidney is imaged it is sonographically nontender there is no evidence of hydronephrosis. The inferior vena cava is full but collapses completely with respiration after 1 L. PD MEDICAL DECISION MAKING - ED course Complexity details: reviewed old records, reviewed results, re-evaluated patient, considered differential, d/w patient, d/w family ED course: 32-year-old male has developed a fever cough congestion and back spasm. He has had some vomiting as well. I suspect he may have influenza and his back spasm is secondary to dehydration. He is administered saline, Zofran and dexamethasone with toradal for pain relief. X-ray of his chest and a influenza swab are pending. The patient refuses flu swab. CXR without infiltrate. Likely influenza with dehydration and back spasm. Departure - Departure Disposition: 01 Home, Self Care Clinical Impression: Dehydration, Influenza, Spasm of back muscles Condition: Stable Instructions: ED Spasm Back No Trauma, ED Dehydration, ED Flu Follow-Up: [facility] [Provider Group] Prescriptions: Cyclobenzaprine [Flexeril] 10 mg PO TID PRN #20 tablet PRN Reason: Spasms Hydrocodone/Acetaminophen [Hydrocodon-Acetaminophen 5-325] 1 - 2 each PO Q6H PRN #14 tablet PRN Reason: pain Comments: Today it appears you have back spasm secondary to dehydration which is secondary to fever which is secondary to influenza. Typically it takes 6-7 days to rec over from the flu and fever should be treated as excessive sweating can cause this level of dehydration. If you are taking the hydrocodone do not take additional Tylenol for fever control. Forms: Activity restrictions
[2018-05-10] MEDS ORDERED: POTASSIUM BICARB 25 MEQ TABLET PO STA (07:26)
[2018-05-10] MEDS ORDERED: KETOROLAC 30 MG/ML VIAL IVP STA (07:52)
--- NOTE | 2018-05-10 07:52 | XRAY Report ---
Reason: cough and fever Procedure Date: 05/10/2018 Accession Number: [id number] / [id number] Procedure: XR - Chest 2 View X-Ray CPT Code: 67757 FULL RESULT: EXAM: CHEST RADIOGRAPHY EXAM DATE: 05/10/2018 07:38 AM. CLINICAL HISTORY: Cough and fever. Chest pain. COMPARISON: CHEST 2 VIEW 08/18/2017 4:33 AM. TECHNIQUE: 2 views. FINDINGS: Lungs/Pleura: No focal opacities evident. No pleural effusion. No pneumothorax. Normal volumes. Mediastinum: Heart and mediastinal contours are unremarkable. Other: No acute osseous abnormality. There are surgical clips in the right upper quadrant of the abdomen. IMPRESSION: No acute cardiopulmonary abnormality. RADIA
[2018-05-10 07:57] LABS: BILIRUBIN,URINE NEGATIVE (NEGATIVE); GLUCOSE, URINE (UA) NEGATIVE (NEGATIVE); KETONES,URINE (UA) 40 mg/dL (NEGATIVE); LEUKOCYTE ESTERASE, URINE NEGATIVE (NEGATIVE); NITRITE,URINE NEGATIVE (NEGATIVE); OCCULT BLOOD,URINE NEGATIVE (NEGATIVE); PH,URINE 8.5 PH (5.0-7.5); PROTEIN,URINE NEGATIVE (NEGATIVE); UROBILINOGEN,URINE 0.2 (NORMAL) E.U./dL (NORMAL)
[2018-05-10 07:58] LABS: CLARITY,URINE CLEAR (CLEAR)
[2018-05-10 08:52] VITALS: BP 156/78
== END 2018-05-10 08:52 | disposition home or self-care (01) ==
LOC: ED 06:11
DX: E86.0 Dehydration (principal); J10.1 Influenza due to other identified influenza virus with other respiratory manifestations; M62.830 Muscle spasm of back; F17.200 Nicotine dependence, unspecified, uncomplicated
CPT/HCPCS: 36415; 71046; 80053; 81003; 83690; 85025; 96361; 96374; 96375; 99283; A9270; 81001; 87086

== ENCOUNTER 2018-11-17 19:36 | Emergency (ER) | payer OTHER ==
--- NOTE | 2018-11-17 21:12 | ED Physician Documentation ---
PD HPI CHEST PAIN - Stated complaint Stated Complaint: CP/VOM - Chief complaint Chief Complaint: Cardiac - History obtained from History obtained from: Patient, Family - History of Present Illness Timing - onset: How many days ago (2) Timing - onset during: Rest Timing - duration: Days (2) Timing - details: Gradual onset, Still present Quality: Pressure Location: Substernal Radiation: Back Improved by: Nothing Worsened by: Other (nothing) Associated symptoms: Nausea, Vomiting. No: Shortness of air, Diaphoresis, General Weakness, Palpitations, Cough Similar symptoms before: Has not had sx before Recently seen: Not recently seen - Additional information Additional information: 33-year-old physically fit male has developed some substernal chest pressure radiating to his back over the last 2 days and associated with this he has some vomiting. He states that he is able to hold down some fluids but any food he has seems to come right back. 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 He states that he does do cannabis on a regular basis he uses as much as a cartridge a day of concentrate in a vape pen. He has stopped today and has started on smoking "flower" instead. Review of Systems Constitutional: reports: Fatigue, Sweats. denies: Fever, Chills Eyes: denies: Decreased vision Ears: denies: Ear pain Nose: denies: Rhinorrhea / runny nose, Congestion Throat: denies: Sore throat Cardiac: reports: Chest pain / pressure. denies: Palpitations, Pedal edema, Calf pain Respiratory: denies: Dyspnea, Cough GI: reports: Nausea, Vomiting. denies: Abdominal Pain, Constipation, Diarrhea : denies: Dysuria, Frequency Skin: denies: Rash Musculoskeletal: denies: Neck pain, Back pain, Extremity pain Neurologic: denies: Generalized weakness, Focal weakness, Numbness PD PAST MEDICAL HISTORY - Past Medical History Cardiovascular: None Respiratory: Asthma Endocrine/Autoimmune: None GI: GERD : None HEENT: None Psych: None Musculoskeletal: None Derm: None - Past Surgical History Past Surgical History: Yes General: Cholecystectomy, EGD Ortho: Other HEENT: Tonsil/Adenoidectomy - Present Medications Home Medications: Ambulatory Orders Medication Instructions Recorded Confirmed Oxycodone HCl/Acetaminophen 1 - 2 each PO Q6H PRN #7 tablet 02/10/18 [Percocet 5-325 mg Tablet] Cyclobenzaprine [Flexeril] 10 mg PO TID PRN #20 tablet 05/10/18 Hydrocodone/Acetaminophen 1 - 2 each PO Q6H PRN #14 tablet 05/10/18 [Hydrocodon-Acetaminophen 5-325] Cyclobenzaprine [Flexeril] 10 mg PO TID PRN #20 tablet 11/17/18 - Allergies Allergies/Adverse Reactions: Allergies Allergy/AdvReac Type Severity Reaction Status Date / Time No Known Drug Allergies Allergy Verified 11/17/18 19:44 - Social History Does the pt smoke?: Yes Smoking Status: Current every day smoker Does the pt drink ETOH?: Yes Does the pt have substance abuse?: No - Immunizations Immunizations are current?: Yes - POLST Patient has POLST: No PD ED PE NORMAL - Vitals Vital signs reviewed: Yes (hypertensive) - General General: Alert and oriented X 3, No acute distress, Well developed/nourished - HEENT HEENT: Atraumatic, PERRL, EOMI - Neck Neck: Supple, no meningeal sign - Cardiac Cardiac: RRR, No murmur - Respiratory Respiratory: No respiratory distress, Clear bilaterally - Abdomen Abdomen: Normal bowel sounds, Soft, Non tender, Non distended, No organomegaly, Other (There is evidence of a jesus-umbilical hernia small reducible and non- tender.) - Back Back: No CVA TTP - Derm Derm: Normal color, Warm and dry, No rash - Neuro Neuro: Alert and oriented X 3, water systems engineer 2-12 intact, No motor deficit, No sensory deficit, Normal speech Eye Opening: Spontaneous Motor: Obeys Commands Verbal: Oriented GCS Score: 15 - Psych Psych: Normal mood, Normal affect Results - Vitals Vitals: Vital Signs - 24 hr 11/17/18 11/17/18 11/17/18 19:44 20:52 20:57 Temperature 36.5 C 36.7 C Heart Rate 75 63 77 Respiratory 16 12 18 Rate Blood Pressure 167/90 H 143/97 H 143/91 H O2 Saturation 98 99 99 11/17/18 22:00 Temperature Heart Rate 65 Respiratory 20 Rate Blood Pressure 135/70 H O2 Saturation 97 Oxygen O2 Source Room air - EKG (time done) 1943 Rate: Rate (enter#) (77) Rhythm: NSR Ischemia: Q waves Compare to prior EKG: Unchanged from prior EKG (SPT 4-5-18 no sig change) Computer interpretation: Disagree with computer (I do not see involvement of lateral leads in age indeterminate infacrt. ) - Labs Labs: Laboratory Tests 11/17/18 11/17/18 11/17/18 21:15 21:15 21:15 WBC 7.5 RBC 5.03 Hgb 15.7 Hct 44.9 MCV 89.3 MCH 31.2 H MCHC 35.0 RDW 13.0 Plt Count 228 MPV 9.2 Neut # (Auto) 4.6 Lymph # (Auto) 1.3 L [place] # (Auto) 1.4 H Eos # (Auto) 0.1 Baso # (Auto) 0.1 Absolute Nucleated RBC 0.00 Nucleated RBC % 0.0 Sodium 140 Potassium 3.6 Chloride 102 Carbon Dioxide 28 Anion Gap 10.0 BUN 17 Creatinine 1.2 Estimated GFR (MDRD) 70 L Glucose 107 H Calcium 9.3 Total Bilirubin 1.1 H AST 19 ALT 18 Alkaline Phosphatase 38 L Troponin I High Sens 2.8 Total Protein 7.9 Albumin 4.9 Globulin 3.0 Albumin/Globulin Ratio 1.6 Lipase 22 Urine Color Urine Clarity Urine pH Ur Specific [place] Urine Protein Urine Glucose (UA) Urine Ketones Urine Occult Blood Urine Nitrite Urine Bilirubin Urine Urobilinogen Ur Leukocyte Esterase Ur Microscopic Review Urine Culture Comments 11/17/18 21:38 WBC RBC Hgb Hct MCV MCH MCHC RDW Plt Count MPV Neut # (Auto) Lymph # (Auto) [place] # (Auto) Eos # (Auto) Baso # (Auto) Absolute Nucleated RBC Nucleated RBC % Sodium Potassium Chloride Carbon Dioxide Anion Gap BUN Creatinine Estimated GFR (MDRD) Glucose Calcium Total Bilirubin AST ALT Alkaline Phosphatase Troponin I High Sens Total Protein Albumin Globulin Albumin/Globulin Ratio Lipase Urine Color YELLOW Urine Clarity CLEAR Urine pH 6.0 Ur Specific [place] 1.025 Urine Protein NEGATIVE Urine Glucose (UA) NEGATIVE Urine Ketones TRACE Urine Occult Blood NEGATIVE Urine Nitrite NEGATIVE Urine Bilirubin NEGATIVE Urine Urobilinogen 0.2 (NORMAL) Ur Leukocyte Esterase NEGATIVE Ur Microscopic Review NOT INDICATED Urine Culture Comments NOT INDICATED - Rads (name of study) chest Radiology: Prelim report reviewed (Impression: Normal two-view chest radiography.), EMP read indepedently, See rad report Procedures - IVC sono (time) 2100 Bedside IVC sono: IVC measures (cm) (2.07), IVC collapsed c insp (cm) (0.97), Euvolemia PD MEDICAL DECISION MAKING - ED course Complexity details: reviewed old records, reviewed results, re-evaluated patient, considered differential, d/w patient, d/w family ED course: 33 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 He has family history of disc disease. He has negative diagnostics on his cardiac work up and his pain is related to movement of his back. His vomiting may be related to excessive cannabis use and I have discussed this with the patient. The patient is not dehydrated. He has some improvement in abdominal symptoms with the viscous lido and mylanta but no change in the back pain. We have given the patient decadron and I have asked the patient to take some time off of work and I have written a note for 5 days. He is given a script for flexeril and we will avoid narcotic as he has a family history of problems with narcotic. Departure - Departure Disposition: 01 Home, Self Care Clinical Impression: Back spasm, Atypical chest pain Instructions: ED Spasm Back No Trauma Follow-Up: Nusrat Vasquez ARNP [Primary Care Provider] - Prescriptions: Cyclobenzaprine [Flexeril] 10 mg PO TID PRN #20 tablet PRN Reason: Spasms Comments: The nausea and vomiting you have may be related to excessive cannabis use and our recommendation is to reduce or eliminate the use of the cannabis. Forms: Activity restrictions
[2018-11-17 21:23] LABS: BASOPHILS # (AUTO) 0.1 10^3/uL (0.0-0.1); BASOPHILS % (AUTO) 1.1 %; EOSINOPHILS # (AUTO) 0.1 10^3/uL (0.0-0.7); EOSINOPHILS % (AUTO) 1.2 %; HGB - HEMOGLOBIN 15.7 g/dL (14.0-18.0); LYMPHOCYTES # (AUTO) 1.3 10^3/uL (1.5-3.5); LYMPHOCYTES % (AUTO) 17.7 %; MEAN CORPUSCULAR HEMOGLOBIN 31.2 pg (27.0-31.0); MEAN CORPUSCULAR VOLUME 89.3 fL (80.0-94.0); MEAN PLATELET VOLUME 9.2 fL (7.4-11.4); MONOCYTES # (AUTO) 1.4 10^3/uL (0.0-1.0); MONOCYTES % (AUTO) 18.9 %; NEUTROPHILS # (AUTO) 4.6 10^3/uL (1.5-6.6); NEUTROPHILS % (AUTO) 60.8 %; PLT - PLATELET COUNT 228 10^3/uL (130-450); RED BLOOD COUNT 5.03 10^6/uL (4.70-6.10); WHITE BLOOD COUNT 7.5 x10^3/uL (4.8-10.8)
[2018-11-17 21:36] LABS: ALBUMIN 4.9 g/dL (3.2-5.5); ALBUMIN/GLOBULIN RATIO 1.6 (1.0-2.2); BILIRUBIN,TOTAL 1.1 mg/dL (0.2-1.0); CALCIUM 9.3 mg/dL (8.5-10.3); CREATININE 1.2 mg/dL (0.6-1.2); TOTAL PROTEIN 7.9 g/dL (6.7-8.2)
[2018-11-17 21:58] LABS: BILIRUBIN,URINE NEGATIVE (NEGATIVE); GLUCOSE, URINE (UA) NEGATIVE (NEGATIVE); KETONES,URINE (UA) TRACE mg/dL (NEGATIVE); LEUKOCYTE ESTERASE, URINE NEGATIVE (NEGATIVE); NITRITE,URINE NEGATIVE (NEGATIVE); OCCULT BLOOD,URINE NEGATIVE (NEGATIVE); PROTEIN,URINE NEGATIVE (NEGATIVE); UROBILINOGEN,URINE 0.2 (NORMAL) E.U./dL (NORMAL)
--- NOTE | 2018-11-17 22:00 | XRAY Report ---
Reason: central chest pain Procedure Date: 11/17/2018 Accession Number: [id number] / [id number] Procedure: XR - Chest 2 View X-Ray CPT Code: 60397 FULL RESULT: EXAM: CHEST RADIOGRAPHY EXAM DATE: 11/17/2018 09:31 PM. CLINICAL HISTORY: Central chest pain. COMPARISON: CHEST 2 VIEW 05/10/2018 7:32 AM. TECHNIQUE: 2 views. FINDINGS: Lungs/Pleura: No focal opacities evident. No interstitial abnormality or pulmonary vascular congestion. No pleural effusion. No pneumothorax. Normal volumes. Mediastinum: Heart and mediastinal contours are unremarkable. Other: None. IMPRESSION: Normal 2-view chest radiography. RADIA
[2018-11-17 22:17] LABS: CLARITY,URINE CLEAR (CLEAR)
[2018-11-17] MEDS ORDERED: LIDOCAINE VISCOUS 2% 15 ML UDC MM STA (22:22)
[2018-11-17] MEDS ORDERED: MAG HYDROX/AL HYDROX/SIMETH 30 ML UDC PO STA (22:22)
[2018-11-17] MEDS ORDERED: CHERRY SYRUP 10 ML UDC PO ONE (22:44)
[2018-11-17] MEDS ORDERED: DEXAMETHASONE 10 MG/ML VIAL PO STA (22:44)
[2018-11-17] MEDS ORDERED: CYCLOBENZAPRINE 10 MG Prepack 2 PO PRN (23:16)
[2018-11-17 23:17] VITALS: BP 128/82
== END 2018-11-17 23:31 | disposition home or self-care (01) ==
LOC: ED 19:36
DX: M62.830 Muscle spasm of back (principal); R07.89 Other chest pain; F17.200 Nicotine dependence, unspecified, uncomplicated
CPT/HCPCS: 36415; 71046; 80053; 81003; 83690; 84484; 85025; 99283; 99284; A9270; 81001; 87086; 93005

== ENCOUNTER 2018-12-20 08:00 | Outpatient (CLI) | payer OTHER ==
[2018-12-20 19:31] LABS: CHOL/HDL RATIO 3.3 (<5.0); CHOLESTEROL 196 mg/dL; HDL CHOLESTEROL 59 mg/dL; LDL CHOLESTEROL,CALCULATED 128 mg/dL; LDL/HDL RATIO 2.2 (<3.6); VLDL CHOLESTEROL 9 mg/dL
== END 2018-12-20 23:59 | disposition home or self-care (01) ==
LOC: LAB.N 08:00
PROVIDERS: ATTEND Nurse Practitioner Gerontology
DX: I10 Essential (primary) hypertension (principal); Z13.9 Encounter for screening, unspecified
CPT/HCPCS: 36415; 80061; 83721

== ENCOUNTER 2019-01-19 06:26 | Day surgery (SDC) | payer OTHER ==
[2019-01-19] MEDS ORDERED: LACTATED RINGERS 1,000 ML IV ONE ×3 (06:36→10:18)
[2019-01-19] MEDS ORDERED: CEFAZOLIN SODIUM IN 0.9 % NACL 2 GM/100 ML BAG IV ONE (06:51)
[2019-01-19] MEDS ORDERED: BUPIVACAINE 0.5% PF 30 ML VIAL ONE (06:59)
[2019-01-19] MEDS ORDERED: ceFAZolin 1 GM VIAL ONE (07:07)
--- NOTE | 2019-01-19 07:25 | ANESTHESIA ---
Pre-Anesthesia VS, & Labs - Diagnosis Incisional Hernia - Procedure Incisional hernia repair Vital Signs: Temp Pulse Resp BP Pulse Ox 36.6 C 65 16 150/90 H 97 01/19/19 06:37 01/19/19 06:37 01/19/19 06:37 01/19/19 06:37 01/19/19 06:37 Height 6 ft 4 in Weight (kg) 125.4 kg Body Mass Index 31.3 - NPO >8 hours Home Medications and Allergies Home Medications: Ambulatory Orders Albuterol Sulfate [Proair Hfa Inhaler] 1 - 2 puffs INH Q4H PRN 01/11/19 Lisinopril 10 mg PO DAILY 01/11/19 Albuterol Sulfate [Proair Hfa Inhaler] 1 - 2 puffs INH Q4H PRN 01/11/19 Lisinopril 10 mg PO DAILY 01/11/19 Allergies/Adverse Reactions: Allergies Allergy/AdvReac Type Severity Reaction Status Date / Time No Known Drug Allergies Allergy Verified 11/17/18 19:44 Anes History & Medical History - Anesthetic History Anesthesia Complications: reports: No previous complications - Medical History Cardiovascular: reports: Hypertension, Murmur, Other (Recent stress ECHO, no issues.) Pulmonary: reports: Asthma, Sleep apnea (does not use cpap) Gastrointestinal: reports: GERD Urinary: reports: None Neuro: reports: None Musculoskeletal: reports: Chronic back pain Endocrine/Autoimmune: reports: None Blood Disorders: reports: None Skin: reports: Psoriasis Smoking Status: Former smoker (quit 18 months ago) Psychosocial: reports: Depression, Anxiety, Cannabis (Uses daily), Other (PTSD) - Surgical History General: Cholecystectomy, EGD Eyes Ears Nose Throat (EENT): Tonsil/Adenoidectomy Orthopedic: Other Exam General: Alert, Oriented x3, Cooperative, No acute distress Dental: Poor dentition Mouth Openin Fingerbreadth Neck Mobility: Normal Mallampati classification: I Thyromental Distance: greater than 6 cm Respiratory: Lungs clear, Normal breath sounds, No respiratory distress, No accessory muscle use Cardiovascular: Regular rate, Normal S1, Normal S2, No murmurs Mental/Cognitive Status: Alert/Oriented X3, Normal for patient Plan Anesthesia Type: General Consent for Procedure(s) Verified and Reviewed: Yes Code Status: Attempt Resuscitation ASA classification: 2-Mild systemic disease Is this case an emergency?: No
[2019-01-19] MEDS ORDERED: SCOPOLAMINE PATCH TOP ONE (07:40)
[2019-01-19] MEDS ORDERED: ROCURONIUM 50 MG/5 ML VIAL IVP ONE (08:00)
[2019-01-19] MEDS ORDERED: ceFAZolin 3 GM in SODIUM CHLORIDE 0.9% 100ML 100 ML IV ONE (08:00)
[2019-01-19] MEDS ORDERED: MIDAZOLAM 2 MG/2 ML VIAL IVP ONE (08:00)
[2019-01-19] MEDS ORDERED: fentaNYL 250 MCG/5 ML VIAL IVP ONE (08:00)
[2019-01-19] MEDS ORDERED: ENOXAPARIN 30 MG/0.3 ML SYRINGE SUBQ ONE (08:00)
[2019-01-19] MEDS ORDERED: PROPOFOL 200 MG/20 ML VIAL IVP ONE (08:00)
[2019-01-19] MEDS ORDERED: BUPIVACAINE 0.5% PF 30 ML VIAL SUBQ ONE ×2 (08:51)
[2019-01-19] MEDS ORDERED: DEXAMETHASONE 4 MG/ML VIAL IVP ONE (09:30)
[2019-01-19] MEDS ORDERED: ONDANSETRON 4 MG/2 ML VIAL IVP ONE (09:30)
[2019-01-19] MEDS ORDERED: LIDOCAINE-MPF 2% 5 ML VIAL IM ONE (09:30)
[2019-01-19] MEDS ORDERED: KETOROLAC 30 MG/ML VIAL IVP ONE (09:30)
[2019-01-19] MEDS ORDERED: NEOSTIGMINE 1 MG/1 ML 10 ML MDV IVP ONE (09:30)
[2019-01-19] MEDS ORDERED: IBUPROFEN 600 MG TABLET PO PRN (09:53)
[2019-01-19] MEDS ORDERED: ONDANSETRON 4 MG/2 ML VIAL IVP PRN (09:53)
[2019-01-19] MEDS ORDERED: oxyCODONE 5 MG TABLET PO PRN (09:53)
[2019-01-19] MEDS ORDERED: ACETAMINOPHEN 325 MG TABLET PO PRN (09:53)
[2019-01-19] MEDS: HYDROmorphone 1 MG/ML CARPUJECT ONE ×4 (10:04→10:27)
--- NOTE | 2019-01-19 10:54 | OPERATIVE REPORT ---
DATE OF SERVICE: 01/19/2019 Physician: Ameya Mc DO PREOPERATIVE DIAGNOSIS: A 33-year-old white male with an umbilical/umbilical port site hernia. POSTOPERATIVE DIAGNOSIS: A 33-year-old white male with an umbilical/umbilical port site hernia. PROCEDURE: Umbilical hernia repair with implantation of a medium-sized Ventralex mesh, reference num [id number]. SURGEON: Ameya Mc DO. ELIGIBILITY CLERK: Jae Wallace CRNA. TYPE OF ANESTHESIA: General endotracheal tube with local assist. ESTIMATED BLOOD LOSS: Minimal. FINDINGS: The patient had a moderate-sized umbilical hernia with an incarcerated preperitoneal fat w ithin the umbilicus, and a minimally appreciated defect from the port site from a prior laparoscopic cholecystectomy. COMPLICATIONS: None. CONDITION: Satisfactory upon transfer to recovery. PROCEDURE IN DETAIL: The patient was taken to the operating room and under the above-mentioned anest hetic, prepped and draped in the usual sterile manner. A transverse infraumbilical incision was made and carried down through the skin and subcutaneous tissues until the umbilicus was encountered at th e fascial defect. The umbilicus was then elevated off of the fascial defect, and the fascial defect was then mobilized and further delineated with extending the incision bilaterally. The underlying pe ritoneum was carefully bluntly dissected from the posterior fascial defect, and at no time was the pe ritoneal cavity entered. Eventually, the pocket was created for the implantation of the Ventralex me sh and this was then implanted preperitoneally. The fascial defect edges were then freshened and hem ostasis was achieved through electrocautery. Subsequently the fascial edges were approximated with mu ltiple inverted interrupted 0 PDS sutures. Once these sutures were tied, the ends were then trimmed and the umbilicus was then inspected. A sizable incarcerated preperitoneal fat blob was excised and r emoved. Then the umbilicus was then transfixed to the fascia so as to create an "inny", and the subcu taneous tissues were approximated with inverted interrupted 3-0 Vicryl sutures. Then skin margins all joined with running undyed subcuticular 4-0 Monocryl, Dermabond over that. The patient transported t o recovery in stable condition. TD: 01/19/2019 10:15
[2019-01-19] MEDS ORDERED: oxyCODONE 5 MG TABLET ONE ×2 (10:59→11:57)
[2019-01-19] MEDS ORDERED: ACETAMINOPHEN 325 MG TABLET PO ONE (11:41)
[2019-01-19 12:20] VITALS: BP 122/76
== END 2019-01-19 06:27 | disposition home or self-care (01) ==
LOC: SDS 06:26
PROVIDERS: ATTEND Surgery
PROC: 0WUF0JZ Supplement Abdominal Wall with Synthetic Substitute, Open Approach (ICD-10-PCS; principal; 2019-01-19 08:00)
DX: K43.2 Incisional hernia without obstruction or gangrene (principal); R10.13 Epigastric pain; I10 Essential (primary) hypertension; F10.10 Alcohol abuse, uncomplicated; G47.30 Sleep apnea, unspecified; J44.9 Chronic obstructive pulmonary disease, unspecified; K21.9 Gastro-esophageal reflux disease without esophagitis; F17.210 Nicotine dependence, cigarettes, uncomplicated; E66.9 Obesity, unspecified; Z68.31 Body mass index [BMI] 31.0-31.9, adult; Z79.899 Other long term (current) drug therapy
CPT/HCPCS: 49561; 49568; A9270; C1781; J0690; J1170; J1650; J3010; J3490; J7120

== ENCOUNTER 2019-03-28 18:53 | Outpatient (CLI) | payer OTHER | END 2019-03-28 18:54 | disposition critical access hospital (66) | LOC: EMS 18:53 | PROVIDERS: ATTEND Surgery | DX: S09.90XA Unspecified injury of head, initial encounter (principal); S89.92XA Unspecified injury of left lower leg, initial encounter; M54.2 Cervicalgia; M54.9 Dorsalgia, unspecified; V57.5XXA Driver of pick-up truck or van injured in collision with fixed or stationary object in traffic accident, initial encounter; Y92.414 Local residential or business street as the place of occurrence of the external cause | CPT/HCPCS: A0425; A0429 ==

== ENCOUNTER 2019-03-28 19:12 | Emergency (ER) | payer OTHER ==
[2019-03-28] MEDS ORDERED: fentaNYL 100 MCG/2 ML VIAL ONE (19:16)
[2019-03-28] MEDS ORDERED: fentaNYL 100 MCG/2 ML VIAL IVP STA ×2 (19:20→21:08)
[2019-03-28] MEDS ORDERED: SODIUM CHLORIDE 0.9% 1,000 ML IV ONE (19:20)
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
[2019-03-28] MEDS ORDERED: HALOPERIDOL 5 MG/ML VIAL IVP ONE (19:32)
[2019-03-28 19:41] LABS: BASOPHILS # (AUTO) 0.1 10^3/uL (0.0-0.1); BASOPHILS % (AUTO) 0.6 %; EOSINOPHILS # (AUTO) 0.2 10^3/uL (0.0-0.7); EOSINOPHILS % (AUTO) 1.9 %; HGB - HEMOGLOBIN 14.7 g/dL (14.0-18.0); LYMPHOCYTES # (AUTO) 2.6 10^3/uL (1.5-3.5); LYMPHOCYTES % (AUTO) 23.6 %; MEAN CORPUSCULAR HEMOGLOBIN 30.2 pg (27.0-31.0); MEAN CORPUSCULAR HGB CONC 33.9 g/dL (32.0-36.0); MEAN CORPUSCULAR VOLUME 89.1 fL (80.0-94.0); MEAN PLATELET VOLUME 9.5 fL (7.4-11.4); MONOCYTES # (AUTO) 0.9 10^3/uL (0.0-1.0); MONOCYTES % (AUTO) 8.2 %; NEUTROPHILS # (AUTO) 7.1 10^3/uL (1.5-6.6); NEUTROPHILS % (AUTO) 65.1 %; PLT - PLATELET COUNT 240 10^3/uL (130-450); RED BLOOD COUNT 4.87 10^6/uL (4.70-6.10); RED CELL DISTRIBUTION WIDTH 13.2 % (12.0-15.0)
[2019-03-28 19:44] LABS: MUDS CUTOFF CONCENTRATIONS CUTOFF CONC BELOW:
[2019-03-28] MEDS ORDERED: IOVERSOL 320 100 ML VIAL IVP ONE ×2 (19:44→21:08)
[2019-03-28] MEDS ORDERED: ETOMIDATE 40 MG/20 ML VIAL IVP STA ×2 (19:45→20:08)
[2019-03-28] MEDS ORDERED: PROPOFOL 1000 MG/100 ML 100 ML IV STA ×2 (19:45→21:22)
[2019-03-28] MEDS ORDERED: SUCCINYLCHOLINE 200 MG/10 ML VIAL IVP STA (19:45)
[2019-03-28] MEDS ORDERED: ETOMIDATE 40 MG/20 ML VIAL IVP ONE (19:49)
[2019-03-28 19:50] LABS: PT - PROTHROMBIN TIME 11.4 secs (9.9-12.6)
[2019-03-28] MEDS ORDERED: SUCCINYLCHOLINE 200 MG/10 ML VIAL ONE (19:50)
[2019-03-28 19:52] LABS: ALBUMIN 4.3 g/dL (3.2-5.5); ALBUMIN/GLOBULIN RATIO 1.5 (1.0-2.2); BILIRUBIN,TOTAL 0.7 mg/dL (0.2-1.0); CALCIUM 8.6 mg/dL (8.5-10.3); CREATININE 1.1 mg/dL (0.6-1.2); TOTAL PROTEIN 7.2 g/dL (6.7-8.2)
[2019-03-28 19:52] LABS: BILIRUBIN,URINE NEGATIVE (NEGATIVE); GLUCOSE, URINE (UA) NEGATIVE (NEGATIVE); KETONES,URINE (UA) NEGATIVE (NEGATIVE); LEUKOCYTE ESTERASE, URINE NEGATIVE (NEGATIVE); NITRITE,URINE NEGATIVE (NEGATIVE); OCCULT BLOOD,URINE SMALL (NEGATIVE); PH,URINE 5.5 PH (5.0-7.5); PROTEIN,URINE NEGATIVE (NEGATIVE); UROBILINOGEN,URINE 0.2 (NORMAL) E.U./dL (NORMAL)
[2019-03-28 19:55] LABS: CLARITY,URINE CLEAR (CLEAR)
[2019-03-28] MEDS ORDERED: VECURONIUM 10 MG VIAL IVP STA ×2 (19:59→21:09)
[2019-03-28 20:00] LABS: BACTERIA,URINE None Seen /HPF (None Seen); RBC,URINE 0-5 /HPF (0-5); SQUAMOUS EPITHELIAL CELL,UR NONE SEEN (<= Few)
[2019-03-28 20:02] LABS: AMPHETAMINE SCREEN,URINE NEGATIVE (NEGATIVE); BENZODIAZEPINES SCREEN, URINE NEGATIVE (NEGATIVE); COCAINE SCREEN URINE NEGATIVE (NEGATIVE); METHADONE SCREEN, URINE NEGATIVE (NEGATIVE); METHAMPHETAMINES SCREEN, URINE NEGATIVE (NEGATIVE); OPIATE SCREEN, URINE NEGATIVE (NEGATIVE); OXYCODONE SCREEN, URINE NEGATIVE (NEGATIVE); PROPOXYPHENE SCREEN, URINE NEGATIVE (NEGATIVE); TRICYCLIC ANTIDEPRESSANT,URINE NEGATIVE (NEGATIVE)
[2019-03-28] MEDS ORDERED: WATER FOR INJECTION,STERILE 10 ML ONE (20:03)
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
[2019-03-28] MEDS ORDERED: fentaNYL 2,500 MCG in SODIUM CHLORIDE 0.9% 200 ML IV STA (21:08)
[2019-03-28] MEDS ORDERED: VECURONIUM 10 MG VIAL ONE (21:11)
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
--- NOTE | 2019-03-28 21:38 | CT Report ---
Reason: head injury Procedure Date: 03/28/2019 Accession Number: [id number] / [id number] Procedure: CT - HEAD WO CPT Code: Final Report FULL RESULT: EXAM: CT HEAD EXAM DATE: 03/28/2019 08:45 PM. CLINICAL HISTORY: Trauma, pain. COMPARISON: None. TECHNIQUE: Multiaxial CT images were obtained from the foramen magnum to the vertex. Reformats: Sagittal and coronal. IV contrast: None. In accordance with CT protocol optimization, one or more of the following dose reduction techniques were utilized for this exam: automated exposure control, adjustment of mA and/or KV based on patient size, or use of iterative reconstructive technique. FINDINGS: Parenchyma: No definite parenchymal hemorrhage. Small focus of increased density in left frontotemporal region on axial image 18 may be related to vessels or represent contusion. Streak artifacts complicate interpretation. Mild loss of talavera-white differentiation generally, but most evident in the frontoparietal area. No midline shift Extraaxial Spaces: Loss of sulci due to subtle generalized mass-effect anteriorly. No subdural or epidural collections. Ventricles: Normal in size and position. Sinuses and Orbits: Prominent air-fluid level in right maxillary sinus. Orbital contents grossly intact. Bones: Complex right facial fracture reported separately, including right zygomatic arch, anterior and lateral maxillary sinus bennett, inferior orbital rim, and right lateral orbit. Other: Prominent superficial soft tissue swelling on the right. IMPRESSION: 1. Complex right facial fracture reported separately. 2. Possible small left frontotemporal contusion; generalized anterior cerebral loss of talavera-white differentiation compatible with edema. No definite parenchymal hemorrhage or midline shift. RADIA
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
[2019-03-28 21:43] VITALS: BP 111/64
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
--- NOTE | 2019-03-28 21:55 | XRAY Report ---
Reason: knee inj Procedure Date: 03/28/2019 Accession Number: [id number] / [id number] Procedure: XR - Knee 4 View LT CPT Code: Final Report FULL RESULT: EXAM: LEFT TIBIA/FIBULA AND LEFT KNEE RADIOGRAPHY EXAM DATE: 03/28/2019 09:40 PM. CLINICAL HISTORY: Leg inj. COMPARISON: None. TECHNIQUE: 2 views of the tibia-fibula and 4 views of the left knee. FINDINGS: Bones: Acute intra-articular comminuted fracture of the lateral tibial plateau extending into the tibial spines and medial articular surface. No cortical depression is seen. Joints: No subluxations. No knee effusion. Soft Tissues: Unremarkable. IMPRESSION: Acute intra-articular comminuted fracture involving the lateral tibial plateau, extending into the tibial spines and medial articular surface. RADIA
--- NOTE | 2019-03-28 21:59 | CT Report ---
Reason: facial trauma Procedure Date: 03/28/2019 Accession Number: [id number] / [id number] Procedure: CT - MAXILLOFACIAL WO CPT Code: Final Report FULL RESULT: EXAM: CT MAXILLOFACIAL WITHOUT CONTRAST EXAM DATE: 03/28/2019 08:45 PM. CLINICAL HISTORY: Facial trauma. COMPARISONS: HEAD W/O 08/31/2015 9:15 PM. TECHNIQUE: Thin-section axial images were acquired of the face without contrast. Post-processing: Coronal and sagittal reformats. Other: None. In accordance with CT protocol optimization, one or more of the following dose reduction techniques were utilized for this exam: automated exposure control, adjustment of mA and/or KV based on patient size, or use of iterative reconstructive technique. FINDINGS: Soft Tissue: Right facial subcutaneous edema extending from the lateral orbital rim to below the zygomatic arch. Orbits: The right globe is proptotic. Unremarkable left orbit. Bones: Acute right zygomaticomaxillary complex fracture: --Acute mildly comminuted fracture of right zygomatic arch with 3 mm depression of the fracture fragment. --Acute comminuted fracture of the right lateral orbital wall with approximately 4-5 mm depression of the fracture fragment and approximately 8-9 mm foreshortening/compression. --Acute markedly comminuted fractures of the inferior orbital rim/orbital floor extending through the anterior and posterior maxillary sinus bennett. Several fracture fragments are displaced into the maxillary sinus. Near complete opacification of the maxillary sinus with acute blood products. Small amount of gas extends into the soft tissues anterior to the angle of the mandible. Temporomandibular Joints: The temporomandibular joints are symmetric and normally located. Sinuses: See "Bones" section above. Otherwise unremarkable. Other: Status post intubation with pooling of secretions in the oropharynx extending to the posterior nasal pharynx. For evaluation of the head an cervical spine, please see separately dictated CT head and CT C-spine of the same day. IMPRESSION: 1. Acute right zygomaticomaxillary complex (ZMC) fracture, as detailed above. 2. The right globe is proptotic. 3. Status post intubation with pooling of secretions in the oropharynx extending to the posterior nasal pharynx. Consider suctioning. RADIA
== END 2019-03-28 22:03 | disposition short-term general hospital (02) ==
LOC: EDUNIT# → ED 19:12
DX: S02.40EA Zygomatic fracture, right side, initial encounter for closed fracture (principal); S02.40CA Maxillary fracture, right side, initial encounter for closed fracture; S02.841A Fracture of lateral orbital wall, right side, initial encounter for closed fracture; S02.31XA Fracture of orbital floor, right side, initial encounter for closed fracture; S82.122A Displaced fracture of lateral condyle of left tibia, initial encounter for closed fracture; S06.321A Contusion and laceration of left cerebrum with loss of consciousness of 30 minutes or less, initial encounter; S27.322A Contusion of lung, bilateral, initial encounter; S80.02XA Contusion of left knee, initial encounter; V47.5XXA Car driver injured in collision with fixed or stationary object in traffic accident, initial encounter; Y92.410 Unspecified street and highway as the place of occurrence of the external cause; F10.921 Alcohol use, unspecified with intoxication delirium; I10 Essential (primary) hypertension; Z87.891 Personal history of nicotine dependence
CPT/HCPCS: 31500; 36415; 70450; 70486; 71045; 71260; 72125; 72128; 72131; 73564; 73590; 74177; 80053; 80320; 81001; 83690; 85025; 85610; 96365; 96375; 96376; 99291; J0330; J3010; Q9967; 80306; 81003; 87086

== ENCOUNTER 2020-01-30 08:00 | Outpatient (CLI) | payer OTHER ==
[2020-01-30 12:08] LABS: BASOPHILS % (AUTO) 0.6 %; EOSINOPHILS # (AUTO) 0.1 10^3/uL (0.0-0.7); EOSINOPHILS % (AUTO) 1.8 %; HGB - HEMOGLOBIN 15.8 g/dL (14.0-18.0); LYMPHOCYTES # (AUTO) 1.2 10^3/uL (1.5-3.5); LYMPHOCYTES % (AUTO) 19.2 %; MEAN CORPUSCULAR HEMOGLOBIN 31.4 pg (27.0-31.0); MEAN CORPUSCULAR VOLUME 89.7 fL (80.0-94.0); MEAN PLATELET VOLUME 10.5 fL (7.4-11.4); MONOCYTES # (AUTO) 0.6 10^3/uL (0.0-1.0); MONOCYTES % (AUTO) 8.9 %; NEUTROPHILS # (AUTO) 4.3 10^3/uL (1.5-6.6); PLT - PLATELET COUNT 273 10^3/uL (130-450); RED BLOOD COUNT 5.03 10^6/uL (4.70-6.10); RED CELL DISTRIBUTION WIDTH 13.2 % (12.0-15.0); WHITE BLOOD COUNT 6.3 x10^3/uL (4.8-10.8)
[2020-01-30 12:09] LABS: ALBUMIN 4.4 g/dL (3.2-5.5); ALBUMIN/GLOBULIN RATIO 1.5 (1.0-2.2); ALKALINE PHOSPHATASE 38 IU/L (42-121); ALT ALANINE AMINOTRANSFERASE 20 IU/L (10-60); AST ASPARTATE AMINOTRANSFERASE 20 IU/L (10-42); BILIRUBIN,TOTAL 0.9 mg/dL (0.2-1.0); BUN - BLOOD UREA NITROGEN 15 mg/dL (6-20); CALCIUM 9.4 mg/dL (8.5-10.3); CARBON DIOXIDE - CO2 25 mmol/L (21-32); CHLORIDE 106 mmol/L (101-111); CHOL/HDL RATIO 3.2 (<5.0); CHOLESTEROL 201 mg/dL; CREATININE 1.1 mg/dL (0.6-1.2); GLUCOSE 113 mg/dL (70-100); HDL CHOLESTEROL 63 mg/dL; LDL CHOLESTEROL,CALCULATED 128 mg/dL; SODIUM 139 mmol/L (135-145); TOTAL PROTEIN 7.3 g/dL (6.7-8.2); VLDL CHOLESTEROL 10 mg/dL
== END 2020-01-30 23:59 | disposition home or self-care (01) ==
LOC: LAB.WCP 08:00
PROVIDERS: ATTEND Internal Medicine
DX: F43.21 Adjustment disorder with depressed mood (principal); Z13.9 Encounter for screening, unspecified
CPT/HCPCS: 36415; 80053; 80061; 83721; 84443; 85025

== ENCOUNTER 2021-03-16 21:32 | Emergency (ER) | payer OTHER ==
--- NOTE | 2021-03-17 01:01 | ED Physician Documentation ---
History of Present Illness - Stated complaint Stated Complaint: POS COVID EXPOSURE, HEADACE, N/V, CHILLS - Chief complaint Chief Complaint: Heent - History of Present Illness Timing: How many days ago (3) Improved by: nothing Worsened by: no exacerbating factors - Additonal information Additional information: c/o 3 days of generalized headache, chills and diaphoresis, nausea and vomiting with increasing difficulty tolerating any PO except sips of water. denies cough. He is COVID vaccinated but without booster Review of Systems Constitutional: reports: Chills, Myalgias, Sweats Throat: denies: Sore throat Cardiac: reports: Reviewed and negative Respiratory: reports: Reviewed and negative GI: reports: Nausea, Vomiting. denies: Abdominal Pain, Diarrhea Skin: denies: Rash PD PAST MEDICAL HISTORY - Past Medical History Past Medical History: Yes Cardiovascular: Hypertension, Murmur, Other Respiratory: Asthma, Sleep apnea Neuro: None Endocrine/Autoimmune: None GI: GERD : None HEENT: None Psych: Depression, Anxiety, Bipolar disorder, Panic attacks, ADD/ADHD, Post traumatic stress disorder Musculoskeletal: Chronic back pain Derm: Psoriasis - Past Surgical History Past Surgical History: Yes General: Cholecystectomy, EGD Ortho: Other HEENT: Tonsil/Adenoidectomy - Present Medications Home Medications: Ambulatory Orders Medication Instructions Recorded Confirmed Albuterol Sulfate [Proair Hfa 1 - 2 puffs INH Q4H PRN 01/11/19 01/11/19 Inhaler] lisinopriL [Lisinopril] 10 mg PO DAILY 01/11/19 01/19/19 oxyCODONE [Roxicodone] 5 mg PO Q6H PRN #30 tablet 01/19/19 Ondansetron Odt [Zofran Odt] 4 mg TL Q6H PRN #10 tablet 03/17/21 - Allergies Allergies/Adverse Reactions: Allergies Allergy/AdvReac Type Severity Reaction Status Date / Time No Known Drug Allergies Allergy Verified 03/17/21 00:15 - Social History Does the pt smoke?: Yes Smoking Status: Current every day smoker Does the pt drink ETOH?: Yes Does the pt have substance abuse?: Yes Substance Use and Type: Marijuana - Immunizations Immunizations are current?: Yes - POLST Patient has POLST: No PD ED PE NORMAL - Vitals Vital signs reviewed: Yes - General General: Alert and oriented X 3, No acute distress, Well developed/nourished - HEENT HEENT: Moist mucous membranes - Neck Neck: Supple, no meningeal sign - Cardiac Cardiac: RRR, No murmur - Respiratory Respiratory: No respiratory distress, Clear bilaterally - Abdomen Abdomen: Soft, Non tender, Non distended Results - Vitals Vitals: Oxygen O2 Source Room air - Labs Labs: Laboratory Tests 03/17/21 03/17/21 03/17/21 01:40 01:50 01:50 WBC 9.7 RBC 4.95 Hgb 14.8 Hct 43.1 MCV 87.1 MCH 29.9 MCHC 34.3 RDW 12.8 Plt Count 228 MPV 9.6 Neut # (Auto) 5.9 Lymph # (Auto) 2.3 [place] # (Auto) 1.2 H Eos # (Auto) 0.1 Baso # (Auto) 0.1 Absolute Nucleated RBC 0.00 Nucleated RBC % 0.0 Sodium 139 Potassium 3.8 Chloride 104 Carbon Dioxide 23 Anion Gap 12.0 BUN 13 Creatinine 1.1 Estimated GFR (MDRD) 76 L Glucose 108 H Calcium 9.6 Total Bilirubin 1.5 H AST 19 ALT 17 Alkaline Phosphatase 32 L Total Protein 7.2 Albumin 4.5 Globulin 2.7 Albumin/Globulin Ratio 1.7 Lipase 18 L Nasal Adenovirus (PCR) NOT DETECTED Nasal B. parapertussis DNA (PCR) NOT DETECTED Nasal Coronavir 229E PCR NOT DETECTED Nasal Coronavir HKU1 PCR NOT DETECTED Nasal Coronavir NL63 PCR NOT DETECTED Nasal Coronavir OC43 PCR NOT DETECTED Nasal Enterovir/Rhinovir PCR NOT DETECTED Nasal Influenza B PCR NOT DETECTED Nasal Influenza A PCR NOT DETECTED Nasal Parainfluen 1 PCR NOT DETECTED Nasal Parainfluen 2 PCR NOT DETECTED Nasal Parainfluen 3 PCR NOT DETECTED Nasal Parainfluen 4 PCR NOT DETECTED Nasal RSV (PCR) NOT DETECTED Nasal B.pertussis DNA PCR NOT DETECTED Nasal C.pneumoniae (PCR) NOT DETECTED Quinten Human Metapneumo PCR NOT DETECTED Nasal M.pneumoniae (PCR) NOT DETECTED Nasal SARS-CoV-2 (PCR) NOT DETECTED PD MEDICAL DECISION MAKING - ED course Complexity details: reviewed results, re-evaluated patient, considered differential, d/w patient ED course: presents with n/v, generalized headache, chills and sweats. No respiratory c/o, lungs are CTA and 98 % pulse ox room air. Respiratory viral PCR panel is negative including COVID-19 and influenza. Unremarkable blood tests including CBC and ER abdominal panel. He reports significant improvement in symptoms after IV NS, zofran (total of 8mg), and IV toradol. Results d/w patient, return precautions discussed Departure - Departure Disposition: 01 Home, Self Care Clinical Impression: Viral syndrome Condition: Good Instructions: ED Viral Syndrome Prescriptions: Ondansetron Odt [Zofran Odt] 4 mg TL Q6H PRN #10 tablet PRN Reason: Nausea / Vomiting Comments: The cause of your symptoms is not apparent based on tonight's tests. Your COVID swab is negative and your blood tests do not have any concerning/significant abnormalities. A prescription for ondansetron (anti-nauseant) has been electronically submitted to [facility] in [place]. Forms: Activity restrictions Discharge Date/Time: 03/17/21 03:28
[2021-03-17] MEDS ORDERED: KETOROLAC 30 MG/ML VIAL IVP STA (01:11)
[2021-03-17] MEDS ORDERED: SODIUM CHLORIDE 0.9% 1,000 ML IV STA (01:11)
[2021-03-17] MEDS ORDERED: ONDANSETRON 4 MG/2 ML VIAL IVP STA ×2 (01:11→03:14)
[2021-03-17 02:03] LABS: BASOPHILS # (AUTO) 0.1 10^3/uL (0.0-0.1); EOSINOPHILS # (AUTO) 0.1 10^3/uL (0.0-0.7); EOSINOPHILS % (AUTO) 1.4 %; HCT - HEMATOCRIT 43.1 % (42.0-52.0); HGB - HEMOGLOBIN 14.8 g/dL (14.0-18.0); LYMPHOCYTES # (AUTO) 2.3 10^3/uL (1.5-3.5); LYMPHOCYTES % (AUTO) 23.4 %; MEAN CORPUSCULAR HEMOGLOBIN 29.9 pg (27.0-31.0); MEAN CORPUSCULAR HGB CONC 34.3 g/dL (32.0-36.0); MEAN CORPUSCULAR VOLUME 87.1 fL (80.0-94.0); MEAN PLATELET VOLUME 9.6 fL (7.4-11.4); MONOCYTES # (AUTO) 1.2 10^3/uL (0.0-1.0); MONOCYTES % (AUTO) 12.3 %; NEUTROPHILS # (AUTO) 5.9 10^3/uL (1.5-6.6); NEUTROPHILS % (AUTO) 61.5 %; PLT - PLATELET COUNT 228 10^3/uL (130-450); RED BLOOD COUNT 4.95 10^6/uL (4.70-6.10); RED CELL DISTRIBUTION WIDTH 12.8 % (12.0-15.0); WHITE BLOOD COUNT 9.7 x10^3/uL (4.8-10.8)
[2021-03-17 02:15] LABS: ALBUMIN 4.5 g/dL (3.2-5.5); ALBUMIN/GLOBULIN RATIO 1.7 (1.0-2.2); BILIRUBIN,TOTAL 1.5 mg/dL (0.2-1.0); CALCIUM 9.6 mg/dL (8.5-10.3); CREATININE 1.1 mg/dL (0.6-1.2); POTASSIUM 3.8 mmol/L (3.5-5.0); TOTAL PROTEIN 7.2 g/dL (6.7-8.2)
[2021-03-17 02:59] LABS: CORONAVIRUS 229E-RESP PCR NOT DETECTED; CORONAVIRUS HKU1-RESP PCR NOT DETECTED; CORONAVIRUS NL63-RESP PCR NOT DETECTED; CORONAVIRUS OC43-RESP PCR NOT DETECTED; HUMAN METAPNEUMOVIRUS NOT DETECTED; RHINOVIRUS/ENTEROVIRUS NOT DETECTED; SARS-CoV-2 -RESP PCR PANEL NOT DETECTED
[2021-03-17 03:00] LABS: B. PARAPERTUSSIS- RESP PCR PAN NOT DETECTED; B. PERTUSSIS- RESP PCR PANEL NOT DETECTED; C. PNEUMONIAE- RESP PCR PANEL NOT DETECTED; INFLUENZA A- RESP PCR PANEL NOT DETECTED; INFLUENZA B - RESP PCR PANEL NOT DETECTED; M. PNEUMONIAE- RESP PCR PANEL NOT DETECTED; PARAINFLUENZA VIRUS 1 NOT DETECTED; PARAINFLUENZA VIRUS 2 NOT DETECTED; PARAINFLUENZA VIRUS 3 NOT DETECTED; PARAINFLUENZA VIRUS 4 NOT DETECTED; RSV- RESP PCR PANEL NOT DETECTED
[2021-03-17 03:21] VITALS: BP 120/64
== END 2021-03-17 03:28 | disposition home or self-care (01) ==
LOC: ED 21:32
DX: B34.9 Viral infection, unspecified (principal); I10 Essential (primary) hypertension; F17.200 Nicotine dependence, unspecified, uncomplicated; Z20.822 Contact with and (suspected) exposure to COVID-19
CPT/HCPCS: 0202U; 36415; 80053; 83690; 85025; 96374; 96375; 96376; 99283